=== PATIENT | female | born 1960 | race Caucasian/White ===

== ENCOUNTER → 2016-11-17 | Outpatient (CLI) | payer OTHER ==
[~2016-11-17] MED LIST: CENTRUM SILVER1 EAC3 PO; KEFLEX500 MG PO; VICODIN 5-5001 EACH PO; VITAMIN D1000 UNI1 PO
== END ==
LOC: RAD 10-12 11:28
DX: Z12.31 Encounter for screening mammogram for malignant neoplasm of breast (principal)

== ENCOUNTER → 2018-11-29 | Outpatient (CLI) | payer OTHER | LOC: RAD 09:49 | DX: Z12.31 Encounter for screening mammogram for malignant neoplasm of breast (principal) ==

== ENCOUNTER → 2019-12-16 | Outpatient (CLI) | payer OTHER | LOC: RAD 08:42 | PROVIDERS: ATTEND Obstetrics & Gynecology | DX: Z12.31 Encounter for screening mammogram for malignant neoplasm of breast (principal) ==

== ENCOUNTER → 2020-05-05 | Outpatient (CLI) | payer OTHER ==
[~2020-05-05] MED LIST changes: +FAMOTIDINE40 MG PO; +NEXIUM40 MG PO
== END ==
LOC: LAB 07:42
PROVIDERS: ATTEND Internal Medicine Gastroenterology
DX: Z01.812 Encounter for preprocedural laboratory examination (principal); Z20.822 Contact with and (suspected) exposure to COVID-19

== ENCOUNTER → 2020-05-10 | Outpatient (CLI) | payer OTHER ==
[~2020-05-10] VITALS: Ht 167.6 cm; Wt 122.5 kg
== END | disposition home or self-care (01) ==
LOC: GI 07:43
PROVIDERS: ATTEND Internal Medicine Gastroenterology
DX: K21.00 Gastro-esophageal reflux disease with esophagitis, without bleeding (principal); K44.9 Diaphragmatic hernia without obstruction or gangrene; Z98.890 Other specified postprocedural states; Z79.899 Other long term (current) drug therapy; Z90.710 Acquired absence of both cervix and uterus; Z98.51 Tubal ligation status; Z88.2 Allergy status to sulfonamides; Z88.8 Allergy status to other drugs, medicaments and biological substances
CPT/HCPCS: 62110; 62900

== ENCOUNTER → 2020-05-27 | Outpatient (CLI) | payer OTHER | LOC: LAB 14:27 | PROVIDERS: ATTEND Internal Medicine Gastroenterology | DX: Z01.812 Encounter for preprocedural laboratory examination (principal); Z20.822 Contact with and (suspected) exposure to COVID-19 ==

== ENCOUNTER → 2020-06-01 | Outpatient (CLI) | payer OTHER | END | disposition home or self-care (01) | LOC: GI 08:28 | PROVIDERS: ATTEND Internal Medicine Gastroenterology | DX: K21.9 Gastro-esophageal reflux disease without esophagitis (principal); Z98.890 Other specified postprocedural states; Z79.899 Other long term (current) drug therapy; Z88.2 Allergy status to sulfonamides ==

== ENCOUNTER → 2020-12-08 | Outpatient (CLI) | payer OTHER ==
[~2020-12-08] MED LIST changes: +HYDROCODON-ACE1 EAC7 PO; +MIRALAX17 GM PO; +STIMULANT LAXA1 EACH PO
== END ==
LOC: LAB 07:39
PROVIDERS: ATTEND Student in an Organized Health Care Education/Training Program
DX: Z01.812 Encounter for preprocedural laboratory examination (principal); Z20.822 Contact with and (suspected) exposure to COVID-19

== ENCOUNTER 2020-12-09 06:15 | Day surgery (SDC) | payer OTHER ==
[~2020-12-09] VITALS: Ht 167.6 cm; Wt 126.1 kg
[~2020-12-09 06:15] MED LIST changes: -HYDROCODON-ACE1 EAC7 PO; -MIRALAX17 GM PO; -STIMULANT LAXA1 EACH PO
[2020-12-09 07:15] VITALS: BP 154/87
[2020-12-09 08:50] LABS: HEMOGLOBIN 14.3 gm/dL (12.0-15.0); MCH 29.3 pg (26.0-34.0); MCHC 33.3 g/dL (28.0-37.0); MCV 88.1 fL (80.0-100.0); RBC 4.88 mil/uL (4.20-5.00); RDW 14.4 % (10.5-14.5); WBC 6.1 thou/uL (4.0-11.0)
[2020-12-09 08:57] LABS: CREATININE 1.2 mg/dL (0.6-1.0)
[2020-12-09 09:00] LABS: POTASSIUM 4.3 mmol/L (3.5-5.1)
[2020-12-09 09:03] LABS: ALBUMIN 3.7 g/dL (3.4-5.0); TOTAL BILIRUBIN 0.4 mg/dL (0.2-1.0); TOTAL PROTEIN 7.3 g/dL (6.4-8.2)
[2020-12-09 13:20] VITALS: BP 149/87
[2020-12-09 14:40] VITALS: BP 174/86
[2020-12-09 16:07] VITALS: BP 173/95
--- NOTE | 2020-12-09 18:02 | NUR ---
PATIENT ARRIVED ON THE FLOOR AROUND 1330. PATIENT ALERT X ORIENTED X 4. ON 2L/O2/NC. VSS. PATIENT HAD LAPROSCOPIC HIATAL HERNIA REPAIR AND LAP GABRIELA DONE. PATIENT HAS STERISTRIPSX 7 LAP SITES. PAIN RATING 9-10, PRN PAIN MEDICINE GIVEN Q 3HRS. DAUGHTER WAS IN THE ROOM ON ADMISIION. ADM HIST, ASSESMENT AND ADM EDUCATION COMPLETED.ON CLEAR LIQUID DIET. USED BEDSIDE COMMODE TO URINATE. WILL CONTINUE TO MONITOR.
[2020-12-09 21:53] VITALS: BP 174/94
--- NOTE | 2020-12-10 00:15 | NUR ---
PT ALERT AND ORIENTED X 4. UP TO BSC WITH ASSIST X 2. VOIDING LARGE AMTS CLEAR YELLOW URINE. SL RAC INTACT WITHOUT REDNESS, SWELLING OR DRAINAGE. LAP SITES X 7 WITH SMALL AMT DRIED BLOOD. PT DENIES PAIN OR DISCOMFORT. PT CHECKED ON HOURLY ROUNDS.
[2020-12-10 03:40] VITALS: BP 185/107
[2020-12-10 05:10] VITALS: BP 156/86
[2020-12-10 09:03] VITALS: BP 139/68
--- NOTE | 2020-12-10 09:59 | O ---
[facility] [place] [address] OPERATIVE REPORT Name: BRENDA CRUZ Room #: 434-P [facility]..#: [id number] Admission: 12/09/20 Attend Phys: Rashad Chaudhari, Discharge: Date of : 62 Report #: [id number] THIS REPORT FOR: cc: Lazaro Felder K. Steven DO Patterson,Rashad Gaines MD ~ DATE OF SERVICE: 12/09/2020 PREOPERATIVE DIAGNOSES: 1. Hiatal hernia with gastroesophageal reflux disease. 2. Gallbladder polyps. POSTOPERATIVE DIAGNOSES: 1. Hiatal hernia with gastroesophageal reflux disease. 2. Gallbladder polyps. OPERATIONS: 1. Laparoscopic repair of hiatal hernia with mesh implantation with partial fundoplication. 2. Laparoscopic cholecystectomy. SURGEON: Rashad Chaudhari MD ANESTHESIA: General. ESTIMATED BLOOD LOSS: Minimal. SPECIMENS: Gallbladder. DESCRIPTION OF PROCEDURE: After informed consent was obtained, the patient was brought to the operating room and placed supine. SCDs were placed and working, preoperative antibiotics were administered, general anesthesia was induced. The abdomen was prepped and draped in the usual sterile fashion. A 1 mm incision was made in the left upper quadrant. Veress needle was inserted. Pneumoperitoneum was established. A left periumbilical 5 mm trocar was placed. Then, under direct vision, I placed a left-sided 5 mm trocar and two right-sided trocars; one of these was an 8 mm trocar. An incision was made in the epigastrium and a Geo retractor was inserted. The Geo retractor retracted the liver anteriorly and superiorly. This allowed visualization of the hiatus. The pars flaccida was grasped and incised with a LigaSure. Cautery dissection was made up to the right ciara. There was excellent hemostasis. The phrenoesophageal ligament was then incised. The left ciara was identified. The distal esophagus was isolated with a [place] drain. I then performed a reduction of the hiatal hernia and full mediastinal dissection. [address] [address] OPERATIVE REPORT Name: BRENDA CRUZ Room #: 434-P [facility] M.R.#: [id number] Admission: 12/09/20 Attend Phys: Rashad Chaudhari, Discharge: Date of : 62 Report #: [id number] The short gastric vessels were then taken down using the LigaSure device. There was excellent hemostasis. This allowed for floppy movement of the fundus. I then performed a cruroplasty with a 2-0 Ethibond suture. Four sutures were placed to close the crural defect. A 1 cm Phasix mesh was used as pledgets on each side of the crura. The crura was then reapproximated nicely. Partial fundoplication was undertaken. The fundus of the stomach was brought posteriorly around the esophagus. A 270-degree wrap was performed. This was done by placing 2 sutures on each side of the esophagus with a 2-0 Ethibond performing a partial fundoplication. The Geo retractor was then removed. The liver was then placed back into its anatomic position. I placed a 5 mm port in the epigastrium. Then, the patient was placed in position for laparoscopic cholecystectomy. The gallbladder was grasped and retracted cephalad. Infundibulum was grasped and retracted laterally. I dissected out the cystic duct and the cystic artery. I dissected out the cystic plate. Cystic duct was clipped and ligated leaving 2 clips on the remaining duct. Cystic artery was clipped and ligated leaving a clip on the remaining artery. Gallbladder was then taken off the liver bed with electrocautery. It was placed into an Endopouch and removed. The fascia at the right-sided incision was closed given that this was a 10 mm incision. This was done with 0 Vicryl suture. Skin was then closed with 4-0 Monocryl. Incisions were dressed with Steri-Strips. COMPLICATIONS: None. DISPOSITION: The patient was taken to recovery in satisfactory condition. <ELECTRONICALLY SIGNED> By: Rashad Chaudhari MD 12/10/20 0959 1729 1745 Rashad Chaudhari MD /nt
--- NOTE | 2020-12-10 10:34 | NUR ---
ASSUMED PT CARE AROUND 0700. PT ALERT X ORIENTED X 4. IV RT AC/SL.PAIN PARTIALLY CONTOLLRD BY PAIN MEDICINE.NO C/O NAUSEA. O/E ABD X 7 LAP SITES. ON ROOM AIR IN THE MORNING, LATER RT PUT BACK TO 1L OF 02 O2 SAT WAS 88. RESTING COMFORTABLY IN BED. FALL PRECAUTION IN PLACE. WILL CONTINUE TO MONITOR.
[2020-12-10] MEDS ORDERED: MIRALAX17 GM PO (10:37)
[2020-12-10] MEDS ORDERED: HYDROCODON-ACE1 EAC7 PO (10:37)
[2020-12-10] MEDS ORDERED: STIMULANT LAXA1 EACH PO (10:38)
[2020-12-10 10:56] VITALS: BP 139/68
--- NOTE | 2020-12-10 12:27 | EKG ---
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
--- NOTE | 2020-12-10 12:28 | EKG ---
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 12/10/20 1227 9 9 Travis Delgadillo MD, [facility] /EPI
[2020-12-10 13:54] VITALS: BP 139/68
--- NOTE | 2020-12-14 10:07 | PATH ---
[facility] [address] [place] [address] PATHOLOGY RPT PROCEDURE Name: EDA MCLAUGHLIN Gypsy Room #: DEP [facility] M.R.#: [id number] Admission: 12/09/20 Date of : 62 Discharge: 12/10/20 Report #: [id number] Path Case #: [id number] [facility] Accession Number: [id number] . 01 Material submitted: . gallbladder - GALLBLADDER . 01 Clinical history: . LAPAROSCOPIC HIATAL HERNIA (+++) LAPAROSCOPIC CHOLECYSTECTOMY HIATAL HERNIA, CALCULUS OF GALLBLADDER . 02 Diagnosis: Gallbladder, cholecystectomy: - Mild chronic cholecystitis. - Cholesterolosis. (IUV:deburrer strip; 12/13/2020) MBR 12/13/2020 1212 Local . 02 Electronically signed: . Angelia Haines MD, Pathologist NPI- [id number] . 01 Gross description: . Fixative: Formalin Labeled: Eda Mclaughlin, gallbladder Specimen received: Intact Dimensions: 7.8 x 3.8 x 3.5 cm Lymph node: None Serosa: Lwgv-wdr-dzte, dusky and smooth Calculi: None Mucosa: Green and velvety with moderate bennett stippling and 6 polyps (ranging from 0.2 x 0.2 x 0.1 cm to 0.4 x 0.3 x 0.3 cm) Average wall thickness: 0.2 cm Abnormalities: None A1-A2: Gallbladder, represented ([facility]; 12/10/2020) DKA/DKA 12/10/2020 1115 Local . 02 Pathologist provided ICD-10: K81.1, K82.4 . 02 CPT . 496621 Specimen Comment: A courtesy copy of this report has been sent to [phone], [phone] Specimen Comment: [phone] Specimen Comment: Report sent to / [place] [address] PATHOLOGY RPT PROCEDURE Name: EDA MCLAUGHLIN [id number] Admission: 12/09/20 Date of : 62 Discharge: 12/10/20 Report #: [id number] Path Case #: [id number] Specimen Comment: A duplicate report has been generated due to demographic updates. Performed at: 01 [facility] [address], [place], [place] [id number] MD Michael Banuelos MD Phone: [phone] Performed at: [address] [id number] MD Angelia Haines MD Phone: [phone]
== END 2020-12-10 14:55 | disposition home or self-care (01) ==
LOC: OR 06:15 → TBA 06:17 → OR 07:39 → 4S 13:19 → OR 12-10 14:55
PROVIDERS: ATTEND Surgery
DX: K81.1 Chronic cholecystitis (principal); R10.11 Right upper quadrant pain; K21.9 Gastro-esophageal reflux disease without esophagitis; K44.9 Diaphragmatic hernia without obstruction or gangrene; Z98.890 Other specified postprocedural states; Z79.899 Other long term (current) drug therapy; Z90.710 Acquired absence of both cervix and uterus; Z98.51 Tubal ligation status; Z88.2 Allergy status to sulfonamides
CPT/HCPCS: 50010; 50101; 50386; 50555; 51489; 52265; 52266; 53307; 53310; 53312; 54022; 55245; 56462; 56525; 56526; 56527; 57092; 57155; 58574; 58586; 58910; 62110; 62900; 70005

== ENCOUNTER → 2020-12-20 | Outpatient (CLI) | payer OTHER ==
[~2020-12-20] MED LIST changes: +HYDROCODON-ACE1 EAC7 PO; +MIRALAX17 GM PO; +STIMULANT LAXA1 EACH PO
== END ==
LOC: BC 08:48
PROVIDERS: ATTEND Obstetrics & Gynecology
DX: Z12.31 Encounter for screening mammogram for malignant neoplasm of breast (principal); N64.89 Other specified disorders of breast

== ENCOUNTER → 2020-12-24 | Outpatient (CLI) | payer OTHER | END | disposition home or self-care (01) | LOC: BC 12:04 | PROVIDERS: ATTEND Obstetrics & Gynecology | DX: Z12.31 Encounter for screening mammogram for malignant neoplasm of breast (principal) ==